=== PATIENT | female | born 1950 | race Caucasian/White ===

== ENCOUNTER 2018-01-04 16:38 | Inpatient (IN) | payer MEDICARE, BC ==
[~2018-01-04] VITALS: Ht 167.6 cm; Wt 78.7 kg
[2018-01-04 19:27] VITALS: BP 135/59; PULSE 100; TEMP 98.6
[2018-01-05] VITALS (15 sets, daily range): BP systolic 105–131; BP diastolic 45–71; PULSE 48–127; TEMP 97.3–102.9
[2018-01-05 06:19] LABS: HEMOGLOBIN 10.5 g/dl (12.5-16.0); MEAN CELL VOLUME 91 fl (80.0-100.0); MEAN CORPUSCULAR HEMOGLOBIN 32 pg (27.0-31.0); MEAN CORPUSCULAR HGB CONC 35 g/dl (33.0-37.0); MEAN PLATELET VOLUME 11.5 fl (7.4-10.4); PLATELET COUNT 249 K/mm3 (130-400); RED BLOOD COUNT 3.26 M/mm3 (4.10-5.30); REDCELL DISTRIBUTION WIDTH-CV 13.7 % (11.5-14.5)
[2018-01-05 06:23] LABS: HEMATOCRIT 29.8 % (37.0-47.0)
[2018-01-05 06:26] LABS: ALBUMIN 3.3 gm/dL (3.5-5.0); BILIRUBIN,TOTAL 3.7 mg/dL (0.0-1.0); CALCIUM 8.4 mg/dL (8.4-10.2); CREATININE, serum 0.87 mg/dL (0.52-1.25); TOTAL PROTEIN 6.9 gm/dL (6.4-8.2)
[2018-01-05 06:49] LABS: POTASSIUM 2.8 mmol/L (3.4-5.0)
[2018-01-05 09:15] LABS: BAND 34 % (0-10); LYMPHOCYTE 5 % (20.0-51.0); NEUTROPHILS 57 % (42.0-75.2); PLATELET ESTIMATE NORMAL (NORMAL)
[2018-01-05 09:16] LABS: TOXIC GRANULATION PRESENT
[2018-01-06] VITALS (12 sets, daily range): BP systolic 107–133; BP diastolic 41–82; PULSE 69–83; TEMP 97.4–98.8
[2018-01-06 08:31] LABS: ALBUMIN 3.2 gm/dL (3.5-5.0); BILIRUBIN,TOTAL 2.9 mg/dL (0.0-1.0); CALCIUM 8.5 mg/dL (8.4-10.2); CREATININE, serum 0.59 mg/dL (0.52-1.25); MAGNESIUM 2.3 mg/dL (1.6-2.3); POTASSIUM 4.1 mmol/L (3.4-5.0); TOTAL PROTEIN 6.9 gm/dL (6.4-8.2)
[2018-01-06] MEDS ORDERED: LIPITOR20 MG PO (17:52)
[2018-01-06] MEDS ORDERED: NORVASC 5MG5 MG/TAB PO (17:52)
[2018-01-07 01:21] VITALS: BP 116/52; PULSE 68; TEMP 97.6
[2018-01-07 04:49] VITALS: BP 124/49; PULSE 73; TEMP 97.5
[2018-01-07 06:41] LABS: CALCIUM 8.2 mg/dL (8.4-10.2); CREATININE, serum 0.58 mg/dL (0.52-1.25); POTASSIUM 3.8 mmol/L (3.4-5.0)
[2018-01-07 09:00] VITALS: BP 114/43; PULSE 78; TEMP 97.5
[2018-01-07 11:13] VITALS: BP 119/52; PULSE 73; TEMP 97.9
== END 2018-01-07 15:08 | disposition home or self-care (01) | DRG 418 ==
LOC: SURG 16:38
PROVIDERS: Surgery
PROC: 0FC98ZZ Extirpation of Matter from Common Bile Duct, Via Natural or Artificial Opening Endoscopic (ICD-10-PCS; 2018-01-05)
PROC: 0D7 Gastrointestinal System, Dilation (ICD-10-PCS; 2018-01-05)
PROC: 0FT44ZZ Resection of Gallbladder, Percutaneous Endoscopic Approach (ICD-10-PCS; principal; 2018-01-06 15:00)
DX: K80.43 Calculus of bile duct with acute cholecystitis with obstruction (principal); K31.1 Adult hypertrophic pyloric stenosis; I10 Essential (primary) hypertension; E78.5 Hyperlipidemia, unspecified; E87.6 Hypokalemia; K26.7 Chronic duodenal ulcer without hemorrhage or perforation
CPT/HCPCS: C1726; C1769; G0378; J0690; J1100; J1885; J1956; J2250; J2405; J2704; J3010; J3480; J7120; Q9967